=== PATIENT | female | born 1945 | race Caucasian/White ===

== ENCOUNTER → 2020-12-19 | Outpatient (CLI) | payer OTHER ==
[~2020-12-19] VITALS: Ht 162.6 cm; Wt 86.5 kg
[~2020-12-19] MED LIST: CEFAZOLIN SODIUM 1 GM VIAL IVP ONE
[2020-12-19 10:46] LABS: BASOPHILS % (AUTO) 0.4 % (0.0-5.0); EOSINOPHILS % (AUTO) 2.4 % (0.0-8.0); HEMATOCRIT 37.1 % (36-48); LYMPHOCYTES % (AUTO) 29.8 % (21.0-51.0); MEAN CORPUSCULAR HEMOGLOBIN 29.4 pg (27.0-33.0); MEAN CORPUSCULAR HGB CONC 33.2 g/dL (32.0-36.0); MEAN CORPUSCULAR VOLUME 88.8 fL (79-99); MONOCYTES % (AUTO) 6.9 % (3.0-13.0); NEUTROPHILS % (AUTO) 60.1 % (40.0-77.0); PLATELET COUNT (AUTO) 196 K/uL (130-400); RED BLOOD CELL COUNT(AUTO) 4.18 MIL/uL (4.00-5.50); RED CELL DISTRIBUTION WIDTH 12.1 % (11.0-15.5); WHITE BLOOD COUNT (AUTO) 5.5 K/uL (4.8-10.8)
[2020-12-19 11:05] LABS: POTASSIUM 4.1 mmol/L (3.5-5.1)
[2020-12-22 16:28] VITALS: BP 177/60
== END | disposition home or self-care (01) ==
LOC: DAH 10:00 → EDSTATUS 01-01 11:00
PROVIDERS: ATTEND Orthopaedic Surgery
DX: Z20.822 Contact with and (suspected) exposure to COVID-19 (principal); G89.29 Other chronic pain; R22.30 Localized swelling, mass and lump, unspecified upper limb; M79.89 Other specified soft tissue disorders
CPT/HCPCS: 36415; 80048; 85025; C9803; U0003